=== PATIENT | male | born 1960 | race Caucasian/White ===

== ENCOUNTER 2021-10-22 20:53 | Emergency (ER) | payer OTHER, SELFPAY ==
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
--- NOTE | ~2021-10-22 | XR_ITS ---
EXAMINATION: LEFT ELBOW 3 VIEWS RIGHT WRIST 5 VIEWS RIGHT KNEE 4 VIEWS LEFT KNEE 4 VIEWS CLINICAL INFORMATION: Pain status post trauma COMPARISON: None TECHNIQUE: As above FINDINGS: Left elbow: No effusion. No fracture. Soft tissue swelling posteriorly. Right wrist: Acute obliquely oriented nondisplaced intra-articular fracture the distal radial epiphysis ulnar aspect. Ulnar styloid deformity presumed chronic as well. Large the fracture appears slightly sclerotic suggesting nonacute duration without evidence for any significant healing. This may be subacute. Correlate with patient history. Scaphoid intact. No significant soft tissue swelling. Bilateral knee imaging demonstrates old proximal fibular diaphyseal healed fracture on the right. This is well-healed. No acute deformity. No effusion. No left-sided abnormality. XR/XR wrist RT 2V IMPRESSION: Fractures as above.
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
--- NOTE | ~2021-10-22 | XR_ITS ---
EXAMINATION: LEFT ELBOW 3 VIEWS RIGHT WRIST 5 VIEWS RIGHT KNEE 4 VIEWS LEFT KNEE 4 VIEWS CLINICAL INFORMATION: Pain status post trauma COMPARISON: None TECHNIQUE: As above FINDINGS: Left elbow: No effusion. No fracture. Soft tissue swelling posteriorly. Right wrist: Acute obliquely oriented nondisplaced intra-articular fracture the distal radial epiphysis ulnar aspect. Ulnar styloid deformity presumed chronic as well. Large the fracture appears slightly sclerotic suggesting nonacute duration without evidence for any significant healing. This may be subacute. Correlate with patient history. Scaphoid intact. No significant soft tissue swelling. Bilateral knee imaging demonstrates old proximal fibular diaphyseal healed fracture on the right. This is well-healed. No acute deformity. No effusion. No left-sided abnormality. XR/XR elbow LT 2V IMPRESSION: Fractures as above.
--- NOTE | ~2021-10-22 | XR_ITS ---
EXAMINATION: LEFT ELBOW 3 VIEWS RIGHT WRIST 5 VIEWS RIGHT KNEE 4 VIEWS LEFT KNEE 4 VIEWS CLINICAL INFORMATION: Pain status post trauma COMPARISON: None TECHNIQUE: As above FINDINGS: Left elbow: No effusion. No fracture. Soft tissue swelling posteriorly. Right wrist: Acute obliquely oriented nondisplaced intra-articular fracture the distal radial epiphysis ulnar aspect. Ulnar styloid deformity presumed chronic as well. Large the fracture appears slightly sclerotic suggesting nonacute duration without evidence for any significant healing. This may be subacute. Correlate with patient history. Scaphoid intact. No significant soft tissue swelling. Bilateral knee imaging demonstrates old proximal fibular diaphyseal healed fracture on the right. This is well-healed. No acute deformity. No effusion. No left-sided abnormality. XR/XR knee RT 3V IMPRESSION: Fractures as above.
--- NOTE | ~2021-10-22 | XR_ITS ---
EXAMINATION: LEFT ELBOW 3 VIEWS RIGHT WRIST 5 VIEWS RIGHT KNEE 4 VIEWS LEFT KNEE 4 VIEWS CLINICAL INFORMATION: Pain status post trauma COMPARISON: None TECHNIQUE: As above FINDINGS: Left elbow: No effusion. No fracture. Soft tissue swelling posteriorly. Right wrist: Acute obliquely oriented nondisplaced intra-articular fracture the distal radial epiphysis ulnar aspect. Ulnar styloid deformity presumed chronic as well. Large the fracture appears slightly sclerotic suggesting nonacute duration without evidence for any significant healing. This may be subacute. Correlate with patient history. Scaphoid intact. No significant soft tissue swelling. Bilateral knee imaging demonstrates old proximal fibular diaphyseal healed fracture on the right. This is well-healed. No acute deformity. No effusion. No left-sided abnormality. XR/XR knee LT 3V IMPRESSION: Fractures as above.
[2021-10-22 21:27] VITALS: BP 124/76; PULSE 107; RESP 18; TEMP 36.6; O2SAT 94; BMI 23.7
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
[2021-10-22] MEDS: Diphth,Pertus(ACell),Tet Adult 0.5 ML SYRINGE IM (23:31)
[2021-10-22] MEDS: Ketorolac Tromethamine 30 MG/ML VIAL IVPUSH (23:32)
[2021-10-22 23:38] LABS: MANUAL DIFF FLAG NO
[2021-10-22 23:39] LABS: Basophils Percent Auto 0.2 % (0-2); Eosinophils Absolute Auto 0.1 X10*3/uL (0.0-0.4); Hematocrit 35.1 % (42.0-52.0); Hemoglobin 11.8 g/dl (14.0-18.0); Imm Gran Abs Auto 0.09 X10*3/uL (0.00-0.03); Lymphocytes Absolute Auto 0.9 X10*3/uL (1.2-4.9); Lymphocytes Percent Auto 9.3 % (20-40); Mean Corpuscular HGB Conc 33.6 g/dl (31.0-36.0); Mean Corpuscular Hemoglobin 32.1 pg (27.0-33.0); Mean Corpuscular Volume 95.4 fL (80.0-98.0); Mean Platelet Volume 9.6 fL (9.4-12.4); Monocytes Absolute Auto 1.1 X10*3/uL (0.1-1.2); Monocytes Percent Auto 12.1 % (2-11); Neutrophils Percent Auto 76.4 % (45-73); Platelet Count 146 X10*3/uL (160-400); Red Blood Count 3.68 X10*6/uL (4.60-5.80); Red Cell Distribution Width 15.7 % (11.0-16.0); White Blood Count 9.1 X10*3/uL (4.8-10.8)
[2021-10-23 00:01] LABS: Alanine Aminotransferase 14 U/L (0-40); Albumin Level 4.1 g/dL (3.5-5.0); Alkaline Phosphatase 59 U/L (39-117); Anion Gap 15 (12-20); Aspartate Amino Transferase 34 U/L (5-37); Bilirubin Direct 0.3 mg/dL (0.0-0.5); Bilirubin Total 1.1 mg/dL (0.0-1.0); Blood Urea Nitrogen 19 mg/dL (9-16); Calcium 9.2 mg/dL (8.4-10.2); Carbon Dioxide 25 mmol/L (22-29); Chloride 106 mmol/L (96-108); Creatinine Clr Calc Pharmacy 82.4; Estimated Glomerular Filt Rate > 60; Glucose Random 108 mg/dL (60-115); Potassium 4.6 mmol/L (3.3-5.1); Sodium 141 mmol/L (135-145); Total Protein 7.3 g/dL (6.5-8.0)
[2021-10-23 00:09] VITALS: BP 124/71; PULSE 74; RESP 16; TEMP 37.1; O2SAT 98
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
== END 2021-10-23 01:11 | disposition home or self-care (01) ==
PROVIDERS: Emergency Provider Emergency Medicine Emergency Medical Services
DX: S62.102A Fracture of unspecified carpal bone, left wrist, initial encounter for closed fracture (principal); S00.91XA Abrasion of unspecified part of head, initial encounter; S80.212A Abrasion, left knee, initial encounter; S80.211A Abrasion, right knee, initial encounter; M54.2 Cervicalgia; M54.6 Pain in thoracic spine; M54.50 Low back pain, unspecified; R10.9 Unspecified abdominal pain; V03.90XA Pedestrian on foot injured in collision with car, pick-up truck or van, unspecified whether traffic or nontraffic accident, initial encounter; Y93.9 Activity, unspecified; Y92.410 Unspecified street and highway as the place of occurrence of the external cause; Y99.9 Unspecified external cause status
CPT/HCPCS: 29125; 36415; 70450; 71250; 72125; 73070; 73100; 73562; 74176; 80048; 80076; 85025; 90471; 90715; 96372; 99284; J1885